=== PATIENT | female | born 1990 | race African-American/Black ===

== ENCOUNTER 2020-09-23 23:07 | Emergency (ER) | payer BC ==
[~2020-09-23] VITALS: Ht 165.1 cm; Wt 80.7 kg
[2020-09-24] MEDS ORDERED: TETANUS/DIPHTHERIA TOX ADULT 0.5 ML SYR IM ONE
[2020-09-24] MEDS ORDERED: TETANUS/DIPHTHERIA TOX ADULT 0.5 ML SYR ONE (00:06)
[2020-09-24] MEDS ORDERED: IBUPROFEN 400 MG TAB ONE (00:09)
== END 2020-09-24 00:14 | disposition home or self-care (01) ==
LOC: FSED 23:55
DX: S01.511A Laceration without foreign body of lip, initial encounter (principal); V86.55XA Driver of 3- or 4- wheeled all-terrain vehicle (ATV) injured in nontraffic accident, initial encounter; Y92.89 Other specified places as the place of occurrence of the external cause
CPT/HCPCS: 90714; 99283